=== PATIENT | male | born 1995 | race Caucasian/White ===

== ENCOUNTER 2017-10-12 17:41 | Emergency (ER) | payer BC, OTHER ==
[2017-10-12 18:03] VITALS: RESP 16
--- NOTE | 2017-10-12 18:33 | EDPHY ---
H & P Time Seen by Provider: 10/12/17 17:50 HPI/ROS: HPI Sore throat, nasal congestion. 22-year-old male by private vehicle. He complains of a worsening sore throat with nasal congestion and congestion in his ears since Saturday. No voice changes. No difficulty breathing. Denies high fever. Denies significant muscle aches and joint aches. No cough. ROS: Constitutional: No fever, no chills. No weakness. Eyes: No discharge. No changes in vision. ENT: As above. Respiratory: No cough. No shortness of breath. Cardiac: No chest pain, no palpitations. Gastrointestinal: No abdominal pain, no vomiting, no diarrhea. Musculoskeletal: No back pain. No neck pain. No myalgias or arthralgias. Skin: No rashes. Neurological: No headache. No focal weakness or altered sensation. Past medical history: Denies any significant past medical history. Social history: Here by himself. Nonsmoker. No alcohol. Physical Exam: General Appearance: Alert, no distress. This patient is responding to questions appropriately and in full sentences. This patient appears well- hydrated and well-nourished. Eyes: Pupils equal and round no pallor or injection. No lid edema, erythema or injection. ENT, Mouth: Mucous membranes are moist. Diffuse pharyngeal erythema involving the pharyngeal arches uvula and posterior pharynx. Some scant whitish exudates left posterior pharynx. No asymmetry suggestive of abscess. No voice changes. No stridor on auscultation of his neck. No significant cervical, submental, submandibular lymphadenopathy. Respiratory: There are no retractions, lungs are clear to auscultation with good air movement bilaterally. Cardiovascular: Regular rate and rhythm. No murmur. Neurological: Motor sensory function is grossly intact. Cranial nerves are normal. Gait is normal. Skin: Warm and dry, no rashes. Musculoskeletal: Neck is supple and nontender. No pain on flexion of the neck. Extremities are symmetrical. All joints range without pain or impingement. Psychiatric: No agitation. No depression. Database: EKG: Imaging: Procedures: Emergency department course: Vital signs reviewed. Rapid strep obtained. He has no contraindications to NSAIDs. No history of gastric ulcers or renal dysfunction. He was given intramuscular Toradol and 10 mg of oral Decadron. Rapid strep negative, patient re-evaluated at 6:45 p.m.. He is feeling better after above medications. Results of his strep test discussed with him. Differential diagnosis reviewed. He feels comfortable going home and I feel he is safe for discharge. Follow-up and return to emergency department precautions discussed with him. All of his questions were answered. He was discharged in good condition. Differential Diagnosis: The differential diagnosis on this patient includes but is not limited to viral pharyngitis, streptococcal pharyngitis. Peritonsillar abscess, retropharyngeal abscess, tracheitis, epiglottitis unlikely. This represents a partial list of diagnoses considered. These considerations are based on history, physical exam , past history, reassessment and diagnostic testing. Smoking Status: Never smoked Constitutional: Initial Vital Signs Temperature (C) 37.4 C 10/12/17 17:50 Heart Rate 101 H 10/12/17 17:50 Respiratory Rate 16 10/12/17 17:50 Blood Pressure 159/89 H 10/12/17 17:50 O2 Sat (%) 95 10/12/17 17:50 O2 Delivery Mode Room Air Allergies/Adverse Reactions: No Known Allergies Allergy (Verified 02/11/14 20:16) Home Medications: Medication Instructions Recorded Di 06/16/13 Ondansetron Odt [Zofran Odt] 4 - 8 mg PO Q4PRN PRN #4 tab 02/11/14 Medical Decision Making - Data Points Laboratory Results: 10/12/17 18:15 Group A Strep Screen Pending Departure - Departure Disposition: Home, Routine, Self-Care Clinical Impression: Acute pharyngitis, URI (upper respiratory infection) Condition: Good Instructions: Pharyngitis (ED), Upper Respiratory Infection (ED) Additional Instructions: Read and follow provided instructions. Follow-up with your primary care physician in early next week for re-evaluation. You can start taking ibuprofen tomorrow morning. You can take 600 mg every 6 hr with meals for the next 2-3 days for throat pain. Return to the emergency department for worsening sore throat, difficulty swallowing, changes in her voice, difficulty breathing or other serious concerns. Referrals: NONE *PRIMARY CARE P,. [Primary Care Provider] - As per Instructions
[2017-10-12] MEDS ORDERED: DEXAMETHASONE 4 MG TAB PO ONE (18:35)
[2017-10-12] MEDS ORDERED: KETOROLAC 30 MG/1 ML SDV IM ONE (18:35)
[2017-10-12 18:57] VITALS: BP 136/90; PULSE 98; TEMP 99.7; O2SAT 96
== END 2017-10-12 18:57 | disposition home or self-care (01) ==
LOC: CED 17:41
DX: J02.9 Acute pharyngitis, unspecified (principal); J06.9 Acute upper respiratory infection, unspecified
CPT/HCPCS: 87880-PO; J1885